=== PATIENT | female | born 1990 | race Caucasian/White ===

== ENCOUNTER → 2019-01-29 | Outpatient (CLI) | payer OTHER | LOC: M.ULTRA 13:48 | DX: K80.20 Calculus of gallbladder without cholecystitis without obstruction (principal) ==

== ENCOUNTER → 2019-02-10 | Day surgery (SDC) | payer OTHER ==
[~2019-02-10] MED LIST: FLEXERIL PO; OXYCODONE HCL 55 MG PO; ZANTAC 150MG T150 MG PO; ZOFRAN ODT4 MG DISSOLVE
[2019-02-10 09:04] LABS: HEMATOCRIT 37.2 % (37.0-47.0); HEMOGLOBIN 12.6 gm/dL (12.0-15.0)
--- NOTE | 2019-02-10 19:34 | OP ---
[address] [address] OPERATIVE REPORT Name: DENISHA KEY Room: [facility].#: [id number] Admission: 02/10/19 Attend Phys: Sigrid Ogden DO Discharge: Date of : 89 Report #: [id number] THIS REPORT FOR: //name// CC: Sigrid Suazobeth Jaron DATE OF SERVICE: 02/10/2019 PREPROCEDURE DIAGNOSES: Acute cholecystitis with cholelithiasis. POSTPROCEDURE DIAGNOSES: Acute cholecystitis with cholelithiasis with the addition of an incarcerated inferior umbilical hernia. SURGEON: Sigrid Ogden DO CO-SURGEON: Beena Klein DO SENIOR REVENUE ACCOUNTANT: MAICO Calabrese PROCEDURE PERFORMED: Laparoscopic cholecystectomy. ANESTHESIA: General endotracheal and local. ESTIMATED BLOOD LOSS: 30 mL. SPECIMEN: Gallbladder. COMPLICATIONS: None. CONDITION: Stable. DISPOSITION: PACU to home. OPERATION PERFORMED: Laparoscopic cholecystectomy with primary repair of incarcerated umbilical hernia. HISTORY OF PRESENT ILLNESS: The patient is a very pleasant 28-year-old female who presented to my office with a complaint of fairly severe epigastric and right upper quadrant abdominal pain associated with nausea. She had undergone an ultrasound as an outpatient, which showed a distended gallbladder with large stones and signs of acute cholecystitis. She was then consented for laparoscopic cholecystectomy. Risks discussed included bleeding; infection; pain; scar formation; injury to bowel, liver, or bile duct; hernia at the incision sites; need for an open procedure; and risks of general anesthesia. The patient understood these risks and [place] [address] OPERATIVE REPORT Name: DENISHA KEY Room: [facility]#: [id number] Admission: 02/10/19 Attend Phys: Sigrid Ogden DO Discharge: Date of : 89 Report #: [id number] DESCRIPTION OF PROCEDURE: The patient was brought to the operating room. She was laid supine on the operating room table. SCDs were placed on bilateral lower extremities. Ancef was given in the perioperative period. General endotracheal anesthesia was induced by Anesthesia without difficulty. Abdomen was prepped and draped in standard sterile fashion. Timeout was performed to verify the patient and procedure. A 10 mL of 0.5% Marcaine were injected in the infraumbilical area. Incision was made with 11 blade. Cautery was used for hemostasis. S retractors were used to expose the fascia. It was at this point that we identified that the patient had an inferior umbilical incarcerated hernia, which appeared to contain omentum. The fascia was grasped and elevated between 2 Kochers at the site of the hernia defect. The hernia was then completely cleared from the surrounding fascia. Cautery was then used to transect the hernia sac. Finger was then introduced through the hernia defect and I was able to pop through the peritoneum with my finger. No further adhesions or hernia defects were identified. Two stitches of 0 Vicryl were then placed on the fascia. Campbell trocar was introduced and secured with 0 Vicryl stitches. Abdomen was insufflated. The patient was placed head up and tilted left side down. Camera was introduced and a brief anterior abdominal exploration was undertaken with findings of a hugely swollen gallbladder, which was tense and erythematous. There were multiple dense omental adhesions overlying the gallbladder. Three 5-mm trocars were then introduced, one in the subxiphoid area and two in the right upper quadrant. The edge of the gallbladder was gently elevated while the adhesions were teased down utilizing the suction [employer] special education teacher. The gallbladder was so tense that we were unable to grasp it. An aspiration needle was introduced and approximately 50 mL of thick purulent-appearing bile were aspirated with excellent decompression of the gallbladder. Gallbladder was then able to be elevated, so that we could visualize the triangle of Calot. Cautery was used to incise the peritoneum overlying the triangle. Cystic duct was then readily visible. It was circumferentially dissected free using a [place] dissector. Cystic artery was identified just posterior to the duct. It was also circumferentially dissected free using the [place] dissector. Any tissues posterior to the artery were removed. This then afforded the critical view. Both duct and artery were doubly clipped and ligated. Gallbladder was then removed from the liver bed utilizing cautery with some difficulty secondary to an acute inflammatory plane. Specimen was placed within an EndoCatch bag. Liver bed was inspected. There were several areas of slight bleeding, which were controlled with cautery. Clips were inspected. They appeared to be intact. There was no bleeding or leakage noted from the area of the clips. The liver bed still continued to appear somewhat raw. There was a necrotic plane, especially at the edge of the liver bed. A piece of Surgicel was placed with excellent hemostasis. Right upper quadrant was then copiously irrigated until clear. Trocars were removed under direct visualization. There was no bleeding noted from the peritoneum. Abdomen was then completely desufflated. Campbell trocar was removed. Due to the excessive size of the gallbladder, both the fascial incision and the skin incision had to be extended and the gallbladder [place] [address] OPERATIVE REPORT Name: DENISHA KEY Room: [facility]#: [id number] Admission: 02/10/19 Attend Phys: Sigrid Ogden DO Discharge: Date of : 89 Report #: [id number] EndoCatch bag. There were 3 very large stones palpated within the gallbladder. It was then handed off for permanent pathology. Kochers were placed on the fascia of our hernia defect. Any remaining adhesions or hernia sac were dissected away. The hernia defect was then closed with 2 interrupted stitches of 0 Vicryl in a figure-of-8 fashion with excellent approximation of the fascia. An additional 10 mL of 0.5% Marcaine were used to anesthetize the fascia. This wound was then closed in a layered fashion using deep and superficial stitches of 3-0 Vicryl in inverted interrupted fashion. All skin wounds were then closed with 4-0 Monocryl. A total of 30 mL of 0.5% Marcaine were used to anesthetize the wound. Wounds were then cleansed and covered with Mastisol, Steri-Strips, 4 x 4's, and a Tegaderm. The patient was then allowed to awaken from anesthesia, was extubated, and transported to the recovery room with no further difficulties. Counts were correct x 2 at the conclusion of the case. <ELECTRONICALLY SIGNED> By: Sigrid Ogden DO 02/10/19 1934 1235 [id number] Ogden DO /nt
--- NOTE | 2019-02-12 14:06 | PATH ---
[address] [address] PATHOLOGY RPT PROCEDURE Name: SHAHIDMAX Room: [facility].#: [id number] Admission: 02/10/19 Date of : 89 Discharge: Report #: [id number] Path Case #: [id number] [facility] Accession Number: [id number] . 01 Material submitted: . gallbladder - GALLBLADDER . 01 Clinical history: . Pre-op diagnosis: Cholecystitis Post-op diagnosis: Acute, chronic cholecystitis . 02 Diagnosis: Gallbladder: - Chronic and acute erosive cholecystitis and cholelithiasis with benign and hyperplastic sentinel lymph node. (GIRISH:pit; 02/12/2019) QTP 02/12/2019 1257 Local . 02 Electronically signed: . Anjel Mcginnis MD, Pathologist NPI- [id number] . 01 Gross description: . The specimen is received in formalin, labeled "Shari Gonzáles, gallbladder". Received is an intact gallbladder measuring 9.7 x 3.8 x 3.8 cm in greatest dimensions displaying a pink-ford to adipose covered serosal surface. Opening the specimen reveals a pink-miner, trabeculated mucosa with a gallbladder wall thickness of up to 0.2 cm. Toward the proximal margin, there is a single lymph node present measuring 1.2 cm displaying ford-miner to pink-ford surfaces. Calculi are present displaying a light brown, smooth to yellow-miner, nodular appearance, and no masses or lesions are noted grossly. Rework Machine Operator sections, to include the proximal margin, are submitted in cassette A1. The lymph node is bisected and submitted in cassette A2. (CAA; 02/11/2019) QAC/QAC 02/11/2019 0932 Local . 02 Pathologist provided ICD-10: K80.12 . 02 CPT . 114860 Specimen Comment: A courtesy copy of this report has been sent to Specimen Comment: [phone], . Specimen Comment: Report sent to / DR ORDAZ Performed at: [address] [facility] [address], [place], [place] [id number] [place] [address] PATHOLOGY RPT PROCEDURE Name: CORAL GONZÁLESMAX Room: [facility]#: [id number] Admission: 02/10/19 Date of : 89 Discharge: Report #: [id number] Path Case #: [id number] MD Paulo Morales MD Phone: [phone] Performed at: 02 [facility] [address] [place], [place] Joe [id number] MD Anjel Mcginnis MD Phone: [phone]
== END | disposition home or self-care (01) ==
LOC: M.SUR 08:35
PROVIDERS: Surgery
DX: K80.12 Calculus of gallbladder with acute and chronic cholecystitis without obstruction (principal); K42.0 Umbilical hernia with obstruction, without gangrene; Z79.899 Other long term (current) drug therapy; Z79.891 Long term (current) use of opiate analgesic